=== PATIENT | female | born 1945 | race Two or more races ===

== ENCOUNTER 2019-12-16 08:17 | Outpatient (CLI) | payer OTHER ==
[~2019-12-16 08:17] MED LIST: AMARYL; HYZAAR 100-121 UDTAB; JANUMET 50-1,1 UDTAB; SYNTHROID50 MCG
== END 2019-12-16 08:31 | disposition home or self-care (01) ==
LOC: RAD 08:17
DX: M12.88 Other specific arthropathies, not elsewhere classified, other specified site (principal); M46.47 Discitis, unspecified, lumbosacral region

== ENCOUNTER → 2023-11-30 | Outpatient (CLI) | payer OTHER | END | disposition home or self-care (01) | LOC: SONOGRAMA 07:41 | PROVIDERS: ATTEND Internal Medicine Cardiovascular Disease | DX: M12.9 Arthropathy, unspecified (principal) ==